=== PATIENT | female | born 1965 | race Caucasian/White ===

== ENCOUNTER → 2020-12-20 | Outpatient (CLI) | payer BC | LOC: EXRD 12:58 | DX: M05.79 Rheumatoid arthritis with rheumatoid factor of multiple sites without organ or systems involvement (principal) | CPT/HCPCS: 73130 ==

== ENCOUNTER → 2021-08-03 | Outpatient (CLI) | payer BC | LOC: KOH-I 07-31 13:00 → MRI 13:45 | DX: M51.16 Intervertebral disc disorders with radiculopathy, lumbar region (principal) | CPT/HCPCS: 72148 ==